=== PATIENT | female | born 1945 | race Caucasian/White ===

== ENCOUNTER 2017-07-27 08:45 | Day surgery (SDC) | payer MEDICARE ==
[~2017-07-27 08:45] MED LIST: Acetaminophen TAB* 325 MG PO PRN; Buffered Lidocaine 0.9% SYRIN* 5 ML/SYR SYRINGE INTRADERM ONE
[2017-07-27 11:33] VITALS: BP 170/75
--- NOTE | 2017-07-27 12:27 | OP ---
DATE OF OPERATION: 07/27/2017. DATE OF : 1945. SURGEON: Chris Hart M.D. PREOPERATIVE DIAGNOSIS: Cataract right eye. POSTOPERATIVE DIAGNOSIS: Cataract right eye. OPERATIVE PROCEDURE: Extracapsular cataract extraction with intraocular lens implant right eye. PROCEDURE: The patient was brought to the operating room after being given 1/2% Alcaine with epineph rine drops in the preoperative area. The eye was prepped and draped in the usual sterile fashion. S terile drape and eyelid speculum were placed. Again, topical 1/2% Alcaine with epinephrine was given . A paracentesis incision was made at the 9 o'clock position with the No.75 blade. Clear cornea inc ision 2.2 x 2.2-mm was created at the 12 o'clock position starting at the anterior limbus using the 2 .2-mm keratome. The anterior chamber was irrigated with 0.4 mL of 1% non-preservative intracameral l idocaine and filled with DisCoVisc. A capsulorrhexis was completed using the cystotome and the Utrat a forceps. Hydrodissection was performed with balanced salt solution. The lens nucleus was removed w ith the Phacoemulsification handpiece without incident. Cortex was removed with the irrigation-aspir ation handpiece. The capsular bag was re-inflated using DisCoVisc and an [id number] 20 implant was inser divina with the shooter. The irrigation-aspiration handpiece was used to remove all residual DisCoVisc. The eye was refilled with balanced salt solution and the wound checked and found to be watertight. Topical Maxitrol drops were given. [id number]/[facility] #: [id number]
[2017-07-27] MEDS ORDERED: Phenylephrine 2.5% OPTH.SOL* 2 ML BTL ONE (13:02)
[2017-07-27] MEDS ORDERED: Lidocaine 1% MPF* 2 ML VIAL ONE (13:02)
[2017-07-27] MEDS ORDERED: Cyclopentolate 1% OPTH.SOL* 2 ML BTL ONE (13:02)
[2017-07-27] MEDS ORDERED: Povidone Iodine 5% OPTH* 30 ML BTL ONE (13:02)
[2017-07-27] MEDS ORDERED: Proparacaine 0.5% OPHTH.SOL* 15 ML BTL ONE (13:02)
[2017-07-27] MEDS ORDERED: Lidocaine 2% EPI 1:200000 MPF* 20 ML VIAL ONE (13:02)
[2017-07-27] MEDS ORDERED: acetaZOLAMIDE TAB* 250 MG ONE (13:02)
[2017-07-27] MEDS ORDERED: Neomycin/Polymy/Dex OPTH.SUSP* MAXITROL 0.1% 5 ML ONE (13:02)
[2017-07-27] MEDS ORDERED: Ketorolac 0.5% OPHTH (NF) 0.5 % 5 ML BTL ONE (13:02)
== END 2017-07-27 11:12 | disposition home or self-care (01) ==
LOC: OREAST 08:45
PROVIDERS: ATTEND Specialist
DX: H25.811 Combined forms of age-related cataract, right eye (principal); E11.3293 Type 2 diabetes mellitus with mild nonproliferative diabetic retinopathy without macular edema, bilateral; H04.123 Dry eye syndrome of bilateral lacrimal glands; Z79.84 Long term (current) use of oral hypoglycemic drugs; I10 Essential (primary) hypertension; E78.00 Pure hypercholesterolemia, unspecified; D64.89 Other specified anemias; N18.9 Chronic kidney disease, unspecified
CPT/HCPCS: A9270-GY; V2632

== ENCOUNTER 2017-08-03 07:36 | Day surgery (SDC) | payer MEDICARE ==
[2017-08-03 10:39] VITALS: BP 157/70
--- NOTE | 2017-08-03 10:47 | OP ---
DATE OF OPERATION: 08/03/2017. DATE OF : 1945. SURGEON: Chris aHrt M.D. PREOPERATIVE DIAGNOSIS: Cataract left eye. POSTOPERATIVE DIAGNOSIS: Cataract left eye. OPERATIVE PROCEDURE: Extracapsular cataract extraction with intraocular lens implant left. Eye. PROCEDURE: The patient was brought to the operating room after being given 1/2% Alcaine with epineph rine drops in the preoperative area. The eye was prepped and draped in the usual sterile fashion. S terile drape and eyelid speculum were placed. Again, topical 1/2% Alcaine with epinephrine was given . A paracentesis incision was made at the 3 o'clock position with the No.75 blade. Clear cornea inc ision 2.2 x 2.2-mm was created at the 6 o'clock position starting at the anterior limbus using the 2. 2-mm keratome. The anterior chamber was irrigated with 0.4 mL of 1% non-preservative intracameral li docaine and filled with DisCoVisc. A capsulorrhexis was completed using the cystotome and the Utrata forceps. Hydrodissection was performed with balanced salt solution. The lens nucleus was removed wi th the Phacoemulsification handpiece without incident. Cortex was removed with the irrigation-aspira tion handpiece. The capsular bag was re-inflated using DisCoVisc and an SN60WF 19.5 implant was inse rted with the shooter. The irrigation-aspiration handpiece was used to remove all residual DisCoVisc . The eye was refilled with balanced salt solution and the wound checked and found to be watertight. Topical Maxitrol drops were given. [id number]/[facility] #: [id number]
[2017-08-03] MEDS ORDERED: acetaZOLAMIDE TAB* 250 MG ONE (12:50)
[2017-08-03] MEDS ORDERED: Cyclopentolate 1% OPTH.SOL* 2 ML BTL ONE (12:50)
[2017-08-03] MEDS ORDERED: Neomycin/Polymy/Dex OPTH.SUSP* MAXITROL 0.1% 5 ML ONE (12:50)
[2017-08-03] MEDS ORDERED: Ketorolac 0.5% OPHTH (NF) 0.5 % 5 ML BTL ONE (12:50)
[2017-08-03] MEDS ORDERED: Povidone Iodine 5% OPTH* 30 ML BTL ONE (12:50)
[2017-08-03] MEDS ORDERED: Lidocaine 2% EPI 1:200000 MPF* 20 ML VIAL ONE (12:50)
[2017-08-03] MEDS ORDERED: Lidocaine 1% MPF* 2 ML VIAL ONE (12:50)
[2017-08-03] MEDS ORDERED: Proparacaine 0.5% OPHTH.SOL* 15 ML BTL ONE (12:50)
[2017-08-03] MEDS ORDERED: Phenylephrine 2.5% OPTH.SOL* 2 ML BTL ONE (12:50)
== END 2017-08-03 10:26 | disposition home or self-care (01) ==
LOC: OREAST 07:36
PROVIDERS: ATTEND Specialist
DX: H25.812 Combined forms of age-related cataract, left eye (principal); E11.3293 Type 2 diabetes mellitus with mild nonproliferative diabetic retinopathy without macular edema, bilateral; H04.123 Dry eye syndrome of bilateral lacrimal glands; N18.9 Chronic kidney disease, unspecified; Z87.891 Personal history of nicotine dependence; D64.9 Anemia, unspecified; Z79.84 Long term (current) use of oral hypoglycemic drugs; I12.9 Hypertensive chronic kidney disease with stage 1 through stage 4 chronic kidney disease, or unspecified chronic kidney disease
CPT/HCPCS: A9270-GY; V2632

== ENCOUNTER 2019-02-20 14:05 | Inpatient (IN) | payer MEDICARE ==
[2019-02-20] MEDS ORDERED: NS 0.9% 1000 ML** 1,000 ML IV ONE ×2 (16:17→21:27)
--- NOTE | 2019-02-20 16:28 | ED ---
Shortness of Breath - HPI Summary HPI Summary: 74 year old F presenting to [facility] accompanied by sister with a chief complaint of shortness of breath since one week ago. The patient rates the pain 0/10 in severity. Symptoms aggravated by nothing. Symptoms alleviated by nothing. Patient reports cough since yesterday with no phlegm. Patient reports fever one week ago. Patient reports difficulty standing up right and difficulty speaking in full sentences. Sister reports fatigue. Patient denies chest pain, bilateral leg pain, abdominal pain, nausea, vomiting. Patient denies recent long distance traveling. Patient has hx of diabetes and kidney disease but denies dialysis. - History of Current Complaint Chief Complaint: EDShortnessOfBreath Time Seen by Provider: 02/20/19 16:09 Hx Obtained From: Patient, Family/Area Director Of Home Health Sales - sister Onset/Duration: Lasting Weeks - 1, Still Present Timing: Constant Current Severity: None Aggravating Factors: Nothing Alleviating Factors: Nothing - Allergy/Home Medications Allergies/Adverse Reactions: Allergies Allergy/AdvReac Type Severity Reaction Status Date / Time No Known Allergies Allergy Verified 02/20/19 14:18 Home Medications: Home Medications Albuterol inh POWDER (NF) [Proair Respiclick] 1 - 2 puff INH Q6HR PRN 02/20/19 [ History Confirmed 02/20/19] Aspirin EC TAB* [Ecotrin EC Low Dose 81 MG*] 81 mg PO DAILY 02/20/19 [History Confirmed 02/20/19] Atorvastatin* [Lipitor*] 10 mg PO DAILY 02/20/19 [History Confirmed 02/20/19] Calcitriol CAP* [Rocaltrol CAP*] 0.25 mcg PO BEDTIME 02/20/19 [History Confirmed 02/20/19] Calcium Carb/Mag Ox/Zinc Sulf [Calcium & Magnesium + Zin 334-134-5 mg] 1 tab PO DAILY 02/20/19 [History Confirmed 02/20/19] Cholecalciferol TAB* [Vitamin D TAB*] 1,000 unit PO DAILY 02/20/19 [History Confirmed 02/20/19] Cyanocobalamin TAB* [Vitamin B12 TAB*] 1,000 mcg PO DAILY 02/20/19 [History Confirmed 02/20/19] DOXYcycline CAP(*) [DOXYcycline 100MG CAP(*)] 200 mg PO ONCE PRN 02/20/19 [ History Confirmed 02/20/19] Lisinopril TAB* [Prinivil TAB*] 10 mg PO DAILY 02/20/19 [History Confirmed 02/20] Sitagliptin (NF) [Januvia (NF)] 50 mg PO DAILY 02/20/19 [History Confirmed 02/20] Vitamin E CAP* 400 unit PO DAILY 02/20/19 [History Confirmed 02/20/19] PMH/Surg Hx/FS Hx/Imm Hx Previously Healthy: No Endocrine/Hematology History: Reports: Hx Diabetes, Hx Anemia Denies: Hx Anticoagulant Therapy Cardiovascular History: Reports: Hx Hypertension Denies: Other Cardiovascular Problems/Disorders Respiratory History: Denies: Other Respiratory Problems/Disorders GI History: Reports: Hx Ulcer History: Reports: Other Problems/Disorders - stage 3 kidney disease Musculoskeletal History: Reports: Hx Arthritis - hands, Hx Gout Denies: Hx Osteoporosis Sensory History: Reports: Hx Cataracts - yaya, Hx Contacts or Glasses Denies: Hx Hearing Aid Opthamlomology History: Reports: Hx Cataracts - yaya, Hx Contacts or Glasses Neurological History: Denies: Other Neuro Impairments/Disorders - Cancer History Hx Chemotherapy: No Hx Radiation Therapy: No - Surgical History Surgery Procedure, Year, and Place: Hx Anesthesia Reactions: No Infectious Disease History: No Infectious Disease History: Denies: Traveled Outside the [place] in Last 30 Days - Family History Known Family History: Negative: Cardiac Disease, Diabetes - Social History Alcohol Use: Occasionally Substance Use Type: Reports: None Smoking Status (MU): Never Smoked Tobacco Type: Cigarettes Amount Used/How Often: 1-2 packs a day for 8-9 years Review of Systems Positive: Fever - one week ago, Fatigue Negative: Chest Pain Positive: Shortness Of Breath - one week ago , Cough - non productive, started yesterday Negative: Abdominal Pain, Vomiting, Diarrhea, Nausea Musculoskeletal: Negative - bilateral leg pain All Other Systems Reviewed And Are Negative: Yes Physical Exam - Summary Physical Exam Summary: VITAL SIGNS: Reviewed. GENERAL: Patient is a well-developed and nourished FEMALE who is lying comfortable in the stretcher. Patient is not in any acute respiratory distress. HEAD AND FACE: No signs of trauma. No ecchymosis, hematomas or skull depressions. No sinus tenderness. EYES: PERRLA, EOMI x 2, No injected conjunctiva, no nystagmus. EARS: Hearing grossly intact. Ear canals and tympanic membranes are within normal limits. MOUTH: Oropharynx within normal limits. NECK: Supple, trachea is midline, no adenopathy, no JVD, no carotid bruit, no c- spine tenderness, neck with full ROM. CHEST: Symmetric, no tenderness at palpation LUNGS: Clear to auscultation bilaterally. No wheezing or crackles. CVS: Tachycardic and regular rhythm, S1 and S2 present, no murmurs or gallops appreciated. ABDOMEN: Soft, non-tender. No signs of distention. No rebound no guarding, and no masses palpated. Bowel sounds are normal. EXTREMITIES: FROM in all major joints, no edema, no cyanosis or clubbing. NEURO: Alert and oriented x 3. No acute neurological deficits. Speech is normal and follows commands. SKIN: Dry and warm. Triage Information Reviewed: Yes Vital Signs On Initial Exam: Initial Vitals Temp Pulse Resp BP Pulse Ox 101 F 117 18 139/82 94 02/20/19 14:12 02/20/19 14:12 02/20/19 14:12 02/20/19 14:12 02/20/19 14:12 Vital Signs Reviewed: Yes Diagnostics - Vital Signs Vital Signs Temp Pulse Resp BP Pulse Ox 02/20/19 15:54 116 120/77 94 02/20/19 15:53 116 95 02/20/19 15:35 100.5 F 113 22 108/57 96 02/20/19 14:12 101 F 117 18 139/82 94 - Laboratory Result Diagrams: 02/21/19 15:07 02/21/19 06:24 Lab Statement: Any lab studies that have been ordered have been reviewed, and results considered in the medical decision making process. - Radiology Chest X-Ray Radiology Interpretation Completed By: Radiologist Summary of Radiographic Findings: HYPERINFLATION, CONSISTENT WITH COPD. NO ACTIVE CARDIOPULMONARY DISEASE. ED Physician has reviewed this report. - EKG 1630 Cardiac Rate: Tachycardia - 108 BPM EKG Rhythm: Sinus Tachycardia EKG Comparison: No Significant Change - 04/18/16 Summary of EKG Findings: Sinus Tachycardia, 108 bpm, no ST elevations, similar to 04/18/16 Course/Dx - Course Assessment/Plan: 74 year old F presenting to [facility] accompanied by sister with a chief complaint of shortness of breath since one week ago. The patient rates the pain 0/10 in severity. Symptoms aggravated by nothing. Symptoms alleviated by nothing. Patient reports cough since yesterday with no phlegm. Patient reports fever one week ago. Patient reports difficulty standing up right and difficulty speaking in full sentences. Sister reports fatigue. Patient denies chest pain, bilateral leg pain, abdominal pain, nausea, vomiting. Patient denies recent long distance traveling. Patient has hx of diabetes and kidney disease but denies dialysis. CXR impression: Hyperinflation, consistent with COPD. No active cardiopulmonary disease. Blood work without a significant abnormality except for WBCs of 7.3, hemoglobin 9.7, hematocrit 28 and platelets are clumped. D-dimer is more down 1050, 7134, carbon dioxide is 19, BUN 68, creatinine 3.3, glucose 228, calcium 8.4. Chest x-ray impression: Hyperinflation, consistent with COPD. No active cardiopulmonary disease. The patient has a history of chronic renal failure and the creatinine is at her baseline. However the patients d-dimer is elevated and the patient is tachycardic or hypoxic therefore I ran the Wells criteria for PE and has moderate risk for PE. Therefore, I ordered a d-dimer and its elevated to 1050. Since the patient has a history of chronic renal failure I decided to order a VQ scan. I discussed the case with Dr. Rose from radiology and he agrees and he will call the techs to perform the test and rule out a PE. At this time the patient will be signed out to Dr. Rodríguez at shift change. - Diagnoses Provider Diagnoses: Shortness of breath, Renal insufficiency, Anemia - Physician Notifications Discussed Care of Patient With: Arden Rose Time Discussed With Above Provider: 18:37 Instructed by Provider To: Other - Discussed with Dr. Rose, radiology, about getting a VQ Scan. Discharge - Sign-Out/Discharge Documenting (check all that apply): Sign-Out Patient Signing out patient TO: Diane Rodríguez - shift change Patient Received Moderate/Deep Sedation with Procedure: No - Discharge Plan Condition: Stable Disposition: ADMITTED TO [facility] - Attestation Statements Document Initiated by Scribe: Yes Documenting Scribe: Yudith Licea Provider For Whom Scribe is Documenting (Include Credential): Abdi Thrasher M.D. Scribe Attestation: I, Yudith Licea, scribed for Abdi Thrasher M.D. on 02/21/19 at 2117. Scribe Documentation Reviewed: Yes Provider Attestation: The documentation as recorded by the scribe, Yudith Licea accurately reflects the service I personally performed and the decisions made by Abdi chambers M.D. Status of Scribe Document: Viewed
[2019-02-20 18:09] LABS: ABS Lymphocytes 0.6 10^3/ul (1.0-4.8); ABS Monocytes 0.6 10^3/ul (0-0.8); ABS Neutrophils 6.1 10^3/ul (1.5-7.7); Hematocrit 28 % (35-47); Hemoglobin 9.7 g/dL (12.0-16.0); Lymphocyte % 7.7 %; Mean Corpuscular HGB Conc 35 g/dL (31-36); Mean Corpuscular Hemoglobin 28 pg (27-31); Mean Corpuscular Volume 81 fL (80-97); Nucleated Red Blood Cells % 0.1; Red Blood Count 3.47 10^6 /uL (3.70-4.87); Red Cell Distribution Width 13 % (10-15); White Blood Count 7.3 10^3/uL (3.5-10.8)
[2019-02-20 18:13] LABS: Activated Partial Thrombo Time 29.4 seconds (26.0-38.0)
[2019-02-20 18:24] LABS: Albumin 3.3 g/dL (3.2-5.2); BUN/Creatinine Ratio 20.6 (8-20); C Reactive Protein 93.37 mg/L (<8.01); Calcium 8.4 mg/dL (8.6-10.3); EGFR African American 16.6 (>60); EGFR Non-African American 13.7 (>60); Globulin 3.3 g/dL (2-4); Potassium 4.2 mmol/L (3.5-5.0); Total Bilirubin 0.6 mg/dL (0.2-1.0); Total Protein 6.6 g/dL (6.4-8.9)
[2019-02-20 18:26] LABS: Troponin I 0.02 ng/mL (<0.04)
[2019-02-20 18:28] LABS: CKMB ng/mL 0.7 ng/mL (0.6-6.3); Platelet Count Platelets clumped. 10^3/uL (150-450)
--- NOTE | 2019-02-20 19:41 | ED ---
Progress - Progress Note Progress Note: Receiving sign-out from Dr. Castro at 1900 pending VQ scan. Patient has no COPD history, patient was a former smoker in her 20s for 10 years. Lung Scan-VQ NM result: Normal perfusion. No evidence of pulmonary embolism. ED Provider has reviewed this report. Rectal Exam: No masses, no hemorrhoids. Brown stool sent for occult blood. Dr. Silva, Hospitalist, accepted the patient for admission to the hospital. This plan was discussed with the patient and she was agreeable with this plan. Course/Dx - Course Course Of Treatment: Receiving sign-out from Dr. Castro at 1900 pending VQ scan. Patient has no COPD history, patient was a former smoker in her 20s for 10 years. Lung Scan-VQ NM result: Normal perfusion. No evidence of pulmonary embolism. ED Provider has reviewed this report. Rectal Exam: No masses, no hemorrhoids. Brown stool sent for occult blood. Dr. Silva, Hospitalist, accepted the patient for admission to the hospital. This plan was discussed with the patient and she was agreeable with this plan. - Diagnoses Provider Diagnoses: Shortness of breath, Renal insufficiency, Anemia Discharge - Sign-Out/Discharge Documenting (check all that apply): Patient Departure - Admission, Receiving Sign-Out Receiving patient FROM: Abdi Castro - At shift change 1900 - Discharge Plan Condition: Stable Disposition: ADMITTED TO [facility] - Billing Disposition and Condition Condition: STABLE Disposition: Admitted to [facility] - Attestation Statements Document Initiated by Rosa Maria: Yes Documenting Leelae: Amadeo Beck Provider For Whom Rosa Maria is Documenting (Include Credential): MD Torres Paibmaria teresa Attestation: Amadeo Navarrete scribed for Diane Rodríguez MD on 02/21/19 at 0646. Scribe Documentation Reviewed: Yes Provider Attestation: The documentation as recorded by the Amadeo macdonald accurately reflects the service I personally performed and the decisions made by Ember chambers MD Status of Scribe Document: Viewed
[2019-02-20 21:42] LABS: Urine Appearance Cloudy; Urine Bacteria 3+ (Absent); Urine Bilirubin Negative (Negative); Urine Blood 1+ (Negative); Urine Color Yellow; Urine Glucose Negative (Negative); Urine Ketones Negative (Negative); Urine Nitrite Positive (Negative); Urine Protein 1+(30 mg/dL) (Negative); Urine Red Blood Cell 1+(3-5/hpf) (Absent); Urine Specific Gravity 1.012 (1.010-1.030); Urine Squamous Epithelial Cell Present (Absent); Urine Urobilinogen Negative (Negative); Urine White Blood Cell 3+(>20/hpf) (Absent)
--- NOTE | 2019-02-20 23:13 | HP ---
History of Present Illness - History of Present Illness Reason for Visit: Progressive fatigue, shortness of breath. History of Present Illness: 74yoF w/ DM, HTN, Dyslipidemia, Neuropathy, CKD stage 3, Hx of lyme disease, Neuropathy, here due to progressive fatigue and shortness of breath for the last 1 week. Also has on and off fever and headache. No blood in stool or in urine or any recent traumatic bleeding. Increased thirst the last few days. Dry cough. No other localizing signs no UTI symptoms. - Past Medical History Cardiac: HTN, Hyperlipidemia [employer]: Peripheral neuropathy Heme/Onc: Anemia NOS Infectious Disease: Other - Hx of Lyme disease Endocrine: Diabetes - Past Surgical History Past Surgical History: - 1986 - Past Family History Family History: Other - GI bleeding in mother but due to aspirin use. - Past Social History Smoke: Quit - Quit in her 20s didn't smoke more than a few years. Alcohol: None Drugs: None Lives: Alone Review of Systems - Measurements Intake and Output: Intake and Output Last 24 Hours 02/18/19 02/19/19 02/20/19 02/21/19 06:59 06:59 06:59 06:59 Weight 186 lb - Review of Systems Constitutional Symptoms: Positive: Fatigue, Fever Dermatology: Negative: Rash HEENT: Negative: Change in Hearing Eyes: Negative: Change in Vision Pulmonary: Positive: Cough, Shortness of Breath Negative: Sputum Cardiology: Negative: Chest Pain, Palpitations, Edema Gastroenterology: Negative: Abdominal Pain, Nausea, Vomiting, Constipation, Diarrhea Genital - Urinary: Negative: Dysuria, Polyuria Genitourinay - Female: Positive: Menopause Musculoskeletal: Positive: Joint Pain Hematologic/Lymphatic: Positive: Anemia Neurology: Positive: Headache Negative: Migraines, Change in Vision Objective Active Medications: Ascorbic Acid TAB* [Vitamin C TAB*] 500 mg PO DAILY 07/26/17 [History Confirmed 02/20/19] Albuterol inh POWDER (NF) [Proair Respiclick] 1 - 2 puff INH Q6HR PRN 02/20/19 [ History Confirmed 02/20/19] Aspirin EC TAB* [Ecotrin EC Low Dose 81 MG*] 81 mg PO DAILY 02/20/19 [History Confirmed 02/20/19] Atorvastatin* [Lipitor*] 10 mg PO DAILY 02/20/19 [History Confirmed 02/20/19] Calcitriol CAP* [Rocaltrol CAP*] 0.25 mcg PO BEDTIME 02/20/19 [History Confirmed 02/20/19] Calcium Carb/Mag Ox/Zinc Sulf [Calcium & Magnesium + Zin 334-134-5 mg] 1 tab PO DAILY 02/20/19 [History Confirmed 02/20/19] Cholecalciferol TAB* [Vitamin D TAB*] 1,000 unit PO DAILY 02/20/19 [History Confirmed 02/20/19] Cyanocobalamin TAB* [Vitamin B12 TAB*] 1,000 mcg PO DAILY 02/20/19 [History Confirmed 02/20/19] DOXYcycline CAP(*) [DOXYcycline 100MG CAP(*)] 200 mg PO ONCE PRN 02/20/19 [ History Confirmed 02/20/19] Lisinopril TAB* [Prinivil TAB*] 10 mg PO DAILY 02/20/19 [History Confirmed 02/20] Sitagliptin (NF) [Januvia (NF)] 50 mg PO DAILY 02/20/19 [History Confirmed 02/20] Vitamin E CAP* 400 unit PO DAILY 02/20/19 [History Confirmed 02/20/19] Allergies No Known Allergies Allergy (Verified 02/20/19 14:18) Vital Signs - 8 hr 02/20/19 02/20/19 02/20/19 15:35 15:53 15:54 Temperature 100.5 F Pulse Rate 113 116 116 Respiratory 22 Rate Blood Pressure 108/57 120/77 (mmHg) O2 Sat by Pulse 96 95 94 Oximetry 02/20/19 02/20/19 02/20/19 16:05 16:27 17:06 Temperature Pulse Rate 121 108 104 Respiratory Rate Blood Pressure 110/63 (mmHg) O2 Sat by Pulse 94 94 95 Oximetry 02/20/19 02/20/19 02/20/19 17:09 18:00 18:19 Temperature Pulse Rate 100 98 99 Respiratory 15 23 20 Rate Blood Pressure 121/62 (mmHg) O2 Sat by Pulse 94 95 Oximetry 02/20/19 02/20/19 02/20/19 18:49 19:00 19:19 Temperature Pulse Rate 99 96 Respiratory 21 20 19 Rate Blood Pressure 119/61 118/65 (mmHg) O2 Sat by Pulse 95 95 Oximetry 02/20/19 02/20/19 02/20/19 19:49 20:34 21:00 Temperature Pulse Rate 97 107 90 Respiratory 22 16 14 Rate Blood Pressure 124/65 (mmHg) O2 Sat by Pulse 97 97 98 Oximetry 02/20/19 02/20/19 21:19 21:45 Temperature 101.4 F Pulse Rate 94 Respiratory 25 Rate Blood Pressure 118/57 (mmHg) O2 Sat by Pulse 96 Oximetry Oxygen Devices in Use Now: None Eyes: No Scleral Icterus, PERRLA Ears/Nose/Mouth/Throat: NL Teeth, Lips, Gums, Clear Oropharnyx, Mucous Membranes Moist Neck: NL Appearance and Movements; NL JVP, No Thyroid Enlargement, Masses Respiratory: Clear to Auscultation Cardiovascular: NL Sounds; No Murmurs; No JVD, - - Tachycardia Abdominal: NL Sounds; No Tenderness; No Distention, No Hepatosplenomegaly Extremities: No Edema Skin: No Rash or Ulcers Neurological: Alert and Oriented x 3, NL Sensation, NL Muscle Strength and Tone Result Diagrams: 02/20/19 17:45 02/20/19 17:45 Microbiology and Other Data: Microbiology 02/20/19 21:25 Stool Occult Blood ([facility]AIN[facility]) - Final Stool Assess/Plan/Problems-Billing Assessment: 74yoF w/ DM, HTN, Dyslipidemia, Neuropathy, CKD stage 3, Hx of lyme disease, Neuropathy, here due to progressive fatigue and shortness of breath for the last 1 week. Drop in Hb noted along with fever, abnormal UA. Likely sepsis due to UTI. I was suspecting possible hemolytic syndromes so case discussed with Dr. Samaniego who suggested more than likely patient has some bleeding source and would first investigate that. - Patient Problems (1) Acute blood loss anemia Current Visit: Yes Status: Acute Code(s): D62 - ACUTE POSTHEMORRHAGIC ANEMIA SNOMED Code(s): 022599562 Comment: Unclear the source of bleeding. Given the amount of drop in Hb. Stool occult negative. Hematology consulted. (2) Sepsis Current Visit: Yes Status: Acute Comment: Likely due to UTI will start ceftriaxone. (3) UTI (urinary tract infection) Current Visit: Yes Status: Acute Comment: Ceftriaxone. Follow up with cultures. (4) H/o Lyme disease Current Visit: Yes Status: Acute Code(s): Z86.19 - PERSONAL HISTORY OF OTHER INFECTIOUS AND PARASITIC DISEASES SNOMED Code(s): 041039303 Comment: Follow up lyme PCR. Will consider ID consult if positive or if patient's fever not controlled by covering for UTI.
[2019-02-21] MEDS ORDERED: Dextrose 50% Syringe 50 ML* 25 GM/50 ML SYRINGE IV PUSH PRN (00:04)
[2019-02-21 00:24] LABS: Immature Retic Fraction 0.45
[2019-02-21 00:40] LABS: LDH 177 U/L (140-271); Total Iron Binding Capacity 276 mcg/dL (250-450); Transferrin 197 mg/dL (203-362)
[2019-02-21] MEDS: cefTRIAXone(*) 1 GM in NS 0.9% 50 ML* 50 ML IVPB SCH ×2 (01:11→23:36)
[2019-02-21 01:24] LABS: % Iron Saturation 6 % (15-55); Iron < 17 ug/dL (50-212)
[2019-02-21] MEDS: Acetaminophen TAB* 325 MG PO PRN ×2 (01:39→08:51)
[2019-02-21 01:59] LABS: ABS Lymphocytes 0.6 10^3/ul (1.0-4.8); ABS Monocytes 0.4 10^3/ul (0-0.8); ABS Neutrophils 5.1 10^3/ul (1.5-7.7); Corrected Retic Count 0.4 % (0.5-1.5); Eosinophil % 0.1 %; Hematocrit 27 % (35-47); Hematocrit for Retic CNT 27 % (35-47); Hemoglobin 9.7 g/dL (12.0-16.0); Lymphocyte % 10.3 %; Mean Corpuscular HGB Conc 35 g/dL (31-36); Mean Corpuscular Hemoglobin 29 pg (27-31); Mean Corpuscular Volume 81 fL (80-97); Platelet Count Platelets clumped. 10^3/uL (150-450); Red Cell Distribution Width 14 % (10-15); White Blood Count 6.3 10^3/uL (3.5-10.8)
[2019-02-21] MEDS ORDERED: Lisinopril TAB* 10 MG PO ONE (02:00)
[2019-02-21 06:38] LABS: Hematocrit 28 % (35-47); Hemoglobin 9.6 g/dL (12.0-16.0); Mean Corpuscular HGB Conc 34 g/dL (31-36); Mean Corpuscular Hemoglobin 28 pg (27-31); Mean Corpuscular Volume 81 fL (80-97); Red Blood Count 3.44 10^6 /uL (3.70-4.87); Red Cell Distribution Width 14 % (10-15); White Blood Count 5.8 10^3/uL (3.5-10.8)
[2019-02-21 06:51] LABS: Activated Partial Thrombo Time 29.1 seconds (26.0-38.0); INR 1.38 (0.82-1.09)
[2019-02-21 06:52] LABS: Albumin 3.1 g/dL (3.2-5.2); Albumin/Globulin Ratio 0.9 (1-3); BUN/Creatinine Ratio 19.8 (8-20); Globulin 3.5 g/dL (2-4); Potassium 4.1 mmol/L (3.5-5.0); Total Bilirubin 0.5 mg/dL (0.2-1.0); Total Protein 6.6 g/dL (6.4-8.9)
[2019-02-21 07:32] LABS: ABS Lymphocytes 0.4 10^3/ul (1.0-4.8); ABS Monocytes 0.4 10^3/ul (0-0.8); ABS Neutrophils 5.1 10^3/ul (1.5-7.7); Lymphocyte % 6.3 %; Nucleated Red Blood Cells % 0.1; Platelet Count Platelets clumped. 10^3/uL (150-450)
[2019-02-21 07:35] LABS: Platelet Morphology Clumped
[2019-02-21] MEDS: Cyanocobalamin TAB* 500 MCG PO SCH (08:16)
[2019-02-21] MEDS: Cholecalciferol TAB* 1000 UNITS PO SCH (08:16)
[2019-02-21] MEDS: Ascorbic Acid TAB* 500 MG PO SCH (08:17)
[2019-02-21] MEDS: Atorvastatin* 10 MG TAB PO SCH (08:17)
[2019-02-21] MEDS: Vitamin E CAP* 400 UNIT PO SCH (08:17)
[2019-02-21] MEDS: Insulin LISPRO* 1 UNITS UNIT SUBCUT SCH ×4 (08:17→19:22)
[2019-02-21] MEDS: NS 0.9% 1000 ML** 1,000 ML IV SCH ×2 (08:48→19:25)
[2019-02-21] MEDS ORDERED: Lisinopril TAB* 10 MG PO SCH (09:00)
[2019-02-21 09:25] LABS: Ferritin 510.8 ng/mL (11-307)
[2019-02-21 15:20] LABS: Hematocrit 25 % (35-47); Hemoglobin 8.7 g/dL (12.0-16.0); Mean Corpuscular HGB Conc 35 g/dL (31-36); Mean Corpuscular Hemoglobin 28 pg (27-31); Mean Corpuscular Volume 81 fL (80-97); Red Blood Count 3.11 10^6 /uL (3.70-4.87); Red Cell Distribution Width 14 % (10-15); White Blood Count 4.4 10^3/uL (3.5-10.8)
--- NOTE | 2019-02-21 17:15 | PN ---
Subjective Date of Service: 02/21/19 Interval History: Discussed with patient's PCP office. Patient had document tick bite in December, patient endorses. Patient reports body aches and joint pain several days before admission which have since resolved. Today, patient is feeling improved. She doesn't feel short of breath. She had not yet walked around so could not report dyspnea on exertion. Experienced chills this AM which have since resolved. Denies chest pain, melena, hematochezia ,hematuria, abd pain, nausea, vomiting. Objective Active Medications: Acetaminophen (Tylenol Tab*) 650 mg PO Q6H PRN PRN Reason: FEVER Last Admin: 02/21/19 08:51 Dose: 650 mg Ascorbic Acid (Vitamin C Tab*) 500 mg PO DAILY [facility] Last Admin: 02/21/19 08:17 Dose: 500 mg Atorvastatin Calcium (Lipitor*) 10 mg PO DAILY [facility] Last Admin: 02/21/19 08:17 Dose: 10 mg Calcitriol (Rocaltrol Cap*) 0.25 mcg PO BEDTIME [facility] Cholecalciferol (Vitamin D Tab*) 1,000 units PO DAILY [facility] Last Admin: 02/21/19 08:16 Dose: 1,000 units Cyanocobalamin (Vitamin B12 Tab*) 1,000 mcg PO DAILY [facility] Last Admin: 02/21/19 08:16 Dose: 1,000 mcg Dextrose (D50w Syringe 50 Ml*) 12.5 gm IV PUSH .FOR FS < 60 - SS PRN PRN Reason: FS < 60 Ceftriaxone Sodium 1 gm/ (Sodium Chloride) 50 mls @ 200 mls/hr IVPB Q24H [facility] Last Admin: 02/21/19 01:11 Dose: 200 mls/hr Sodium Chloride (Ns 0.9% 1000 Ml) 1,000 mls @ 100 mls/hr IV PER RATE [facility] Last Admin: 02/21/19 08:48 Dose: 100 mls/hr Insulin Human Lispro (Humalog*) 0 units SUBCUT ACHS [facility]; Protocol Last Admin: 02/21/19 16:14 Dose: Not Given Lisinopril (Prinivil Tab*) 10 mg PO DAILY [facility] Last Admin: 02/21/19 08:16 Dose: 10 mg Vitamin E (Vitamin E Cap*) 400 unit PO DAILY [facility] Last Admin: 02/21/19 08:17 Dose: 400 unit Vital Signs - 8 hr 02/21/19 02/21/19 11:15 15:15 Temperature 99.1 F 98.6 F Pulse Rate 101 91 Respiratory 16 24 Rate Blood Pressure 114/56 112/55 (mmHg) O2 Sat by Pulse 97 97 Oximetry Oxygen Devices in Use Now: None Appearance: White female sitting in hospital bed appearing in NAD Eyes: No Scleral Icterus, PERRLA Ears/Nose/Mouth/Throat: Mucous Membranes Moist Neck: NL Appearance and Movements; NL JVP Respiratory: Symmetrical Chest Expansion and Respiratory Effort, Clear to Auscultation Cardiovascular: NL Sounds; No Murmurs; No JVD, RRR Abdominal: - - abd soft, nontender, nondistended Extremities: No Edema, No Clubbing, Cyanosis Skin: No Rash or Ulcers, - - no jaundice Neurological: Alert and Oriented x 3, NL Muscle Strength and Tone Result Diagrams: 02/21/19 15:07 02/21/19 06:24 Microbiology and Other Data: Microbiology 02/20/19 21:25 Stool Occult Blood (ZAINAB) - Final Stool Assess/Plan/Problems-Billing Assessment: 74yoF w/ DM, HTN, Dyslipidemia, Neuropathy, CKD stage 3, Hx of lyme disease, reports to ED c/o progressive fatigue and shortness of breath x1 week. Found to have anemia. - Patient Problems (1) Sepsis Current Visit: Yes Status: Acute Comment: -possibly due to UTI given abnormal UA -urine culture pending -continue ceftriaxone -last fever overnight, remained tachycardic at times during the day (2) Anemia Current Visit: Yes Status: Acute Code(s): D64.9 - ANEMIA, UNSPECIFIED SNOMED Code(s): 690041864 Comment: -patient has what appears to be anemia of chronic disease -it's possible that her drop in Hgb between 7/1 (from PCP office) to 7/2 (in ED ) represents dilutional change after receiving fluids in ED -hemolysis is unlikely given normal bilirubin -B12 elevated; stool hemoccult negative -appreciate input from Dr. Richard -additionally, unable to measure platelet due to clumping, even with citrated platelet lab (3) Tick bite Current Visit: Yes Status: Acute Code(s): W57.XXXA - BIT/STUNG BY NONVENOM INSECT & OTH NONVENOM ARTHROPODS, INIT SNOMED Code(s): 87265604 Comment: -patient had tick bite in December, received ppx from PCP office -lyme PCR pending -ordered tick panel -lyme is already covered by ceftriaxone (4) Diabetes Current Visit: Yes Status: Acute Code(s): E11.9 - TYPE 2 DIABETES MELLITUS WITHOUT COMPLICATIONS SNOMED Code(s): 79742524 Comment: -SS lispro and AC fingersticks (5) Acute kidney injury superimposed on CKD Current Visit: Yes Status: Acute Code(s): N17.9 - ACUTE KIDNEY FAILURE, UNSPECIFIED; N18.9 - CHRONIC KIDNEY DISEASE, UNSPECIFIED SNOMED Code(s): 84947002 Comment: -holding FRANKLIN -renal US without hydronephrosis, but does demonstrate uterine cyst (warrants outpatient follow up) -possibly related to UTI, urine cx pending, but likely related to hypotension in setting of sepsis as well -will d/c IVF this evening and monitor (6) DVT prophylaxis Current Visit: Yes Status: Acute Code(s): Z29.9 - ENCOUNTER FOR PROPHYLACTIC MEASURES, UNSPECIFIED SNOMED Code(s): 550213007 Comment: -holding chemoprophylaxis given small possibility of source of bleed, pending heme input -SCDs (7) Full code status Current Visit: Yes Status: Acute Code(s): Z78.9 - OTHER SPECIFIED HEALTH STATUS SNOMED Code(s): 162331194
[2019-02-21 20:07] LABS: Renal Sodium Excretion 2.4 %; Urine Creatinine Concentration 59.93 mg/dL
[2019-02-21] MEDS: Calcitriol CAP* 0.25 MCG PO SCH (20:08)
[2019-02-21 22:40] LABS: Creatinine, Serum 3.3 mg/dL (0.51-0.95)
--- NOTE | 2019-02-22 02:46 | CONS ---
MEDICAL ONCOLOGY/HEMATOLOGY CONSULTATION NOTE: DATE OF CONSULTATION: 02/21/19 REASON FOR CONSULTATION: Anemia and reported thrombocytopenia. HISTORY OF PRESENT ILLNESS: Stephanie Maurice is a 74-year-old female who reports that she was in her usual state of good health until approximately 1 week ago. At that point, she developed a headache, joint pain, fevers, and chills. She had some shortness of breath even at rest without an associated cough. As recent as 2 weeks ago when at baseline, she was able to carry objects quickly up and down 3 flights of stairs when working at [employer]. She reports that within the last 3 to 4 weeks, she has had tick bites on 2 occasions and both about 3 weeks ago. She did receive 1 dose of doxycycline. On 02/20/19, the day of admission, she noticed marked increase in shortness of breath and lethargy. She presented to the emergency room where she was found to have anemia along with likely urinary tract infection. She has had laboratory studies done the day prior to admission when she had presented, it was somewhat similar, but not severe symptoms, to [facility]. CBC on 02/19/19, white count 10,800, H and H 33/11.3, and platelets were clumped. On 02/20/19, when she presented to the emergency room in the evening, H and H was now 28/9.7 and this morning it is 28/9.6. Platelets have been clumped on 4 different lab samples. White count has remained normal including normal neutrophil counts. In addition, laboratory studies on admission revealed an elevated creatinine first documented the day prior to admission on 02/19/19 with a creatinine of 3.77 with a baseline creatinine of about 2 to 2.1. Since admission, the creatinine has found slightly to 3.24. Other laboratory studies this admission included iron studies with an iron of less than 17, reported iron saturation of 6%, but truly less, given the fact that the iron is not calculable. TIBC is 276. Transferrin is slightly low 197, ferritin is quite elevated at 510. B12 level is elevated at over 1450. She has been longstanding on both oral iron and oral B12. She has been on B12 since the time of a low B12 level detected in 2013 when it was 152. She has been on iron for at least 5 years. Looking back at her blood counts, it should be noted that she has had at least some anemia going back to the oldest available laboratory studies in 2011 and has typically run a hemoglobin of between 10.5 and 11.5. There was a period of time in 2014 to 2015 when hemoglobin was in the 9 to 9.8 range similar to where it is this morning. On occasions, she has had normal white cells, normal platelets; and MCV which is at the low end of normal at 81, previously over the past 7 years it has typically run more, 82 to 88. PAST MEDICAL HISTORY: 1. Stage 3 kidney disease for at least 5 years for which she follows with Dr. Birmingham and Dr. Hernandez. 2. Diabetes mellitus type 2 for 30 years with a sensory peripheral neuropathy. 3. History of hypertension. 4. History of hyperlipidemia. 5. History of Lyme disease. 6. Status post in 1986. 7. Has had multiple colonoscopies over time. On her very first colonoscopy, there was a polyp detected. She has had 4 or 5 colonoscopies, most recently with Dr. Patel in 2014 and it was unremarkable, good prep, and no polyps noted. No prior hospitalizations, no other surgeries. FAMILY HISTORY: No family history of malignancy. SOCIAL HISTORY: She continues to work about 20 hours per week at [employer]. Lives with her . Smoking occasionally in her 20s. No alcohol. No illicit drugs. MEDICATIONS ON ADMISSION: 1. Ferrous gluconate 1 pill daily for at least 5 years. 2. Vitamin B12 1000 mcg daily. 3. Vitamin C. 4. Aspirin 81 mg daily. 5. Rocaltrol 0.25 mg at h.s. 6. Calcium carbonate with magnesium and zinc daily. 7. Lisinopril 10 mg daily. 8. Sitagliptin/Januvia 50 mg daily. 9. Doxycycline, took late last month. 10. Atorvastatin 10 mg daily. 11. Albuterol p.r.n. ALLERGIES: None. REVIEW OF SYSTEMS: As discussed above. With decreased energy, increasing shortness of breath, headaches, joint pain, fevers, and chills. Denies any other neurologic complaints, specifically no weakness, tingling, numbness, change in vision, or change in speech. Does have mild peripheral neuropathy, this is stable. No significant arthritic or bony complaints. No significant change in bowel or bladder habits, specifically denies any gum bleeds, nosebleed , blood in the urine or stool. PHYSICAL EXAMINATION: A 74-year-old female, in no acute distress. Vital Signs : Blood pressure 114/56, pulse 101, T-max 101.4, and currently 99.1. HEENT: PERRL. EOMI. No erythema or exudates. No palpable cervical, supraclavicular, or axillary adenopathy. Lungs: Clear. Heart: 1 to 2/6 systolic ejection murmur. Abdomen: Soft, nontender, without masses or organomegaly. Extremities : No edema. Back: No CVA or spinal tenderness. Neurologic Exam: The patient is alert and oriented x3. Motor is 5- to 5 throughout and symmetric. Cranial nerves III to XII are intact. DIAGNOSTIC STUDIES/LAB DATA: In addition to those noted above, include negative direct Yan, LDH of 177, total bilirubin of 0.6. Normal transaminases. Elevated C-reactive protein at 93 and believed markedly more elevated and a level of 24 one day previously; baseline appeared to be 16 in 2016. Reticulocyte count corrected at 0.4. Recent Lyme titers are positive on 02/19/19. IMPRESSION: A 74-year-old female with longstanding mild normochromic, normocytic anemia, which is without abnormalities in other cell lines. Laboratory values had not changed significantly from 2010 until 02/19/19. She had been documented in the past to be B12 deficient several years ago and has remained on oral B12 without developing macrocytosis, megaloblastic changes, or worsening anemia. Her peripheral smear was reviewed by myself today. The platelets are definitely clumped. Some large platelets are seen almost the size of the red cells. Given the amount of clumping, her platelet count is at least into the normal range. A citrated tube was attempted to try to further document the platelet count, but that clumped as well. 1. In regard to the platelets, we can try doing tests with amikacin added to the blood vial tube to see if we can unclump the platelets and get a more accurate value. If we cannot, I am not convinced at all that her platelet count is low and we would not be worried by this. 2. Anemia. On reviewing the peripheral smear, there are no schistocytes or any other signs of hemolysis. No early forms are seen and no nucleated red blood cells are seen. It is likely that her current anemia is multifactorial. Clearly, her anemia could very well be worse in relation to having worsening renal failure. In addition, this may be worsened by sepsis. The drop from the day prior to admission to the day of admission is not totally explainable by the amount of fluid as the initial value in the emergency room is before receiving huge volumes of fluid. Despite this, she remained stable since then, at least 1 stool guaiac is negative at the present time. Her iron and ferritin levels would be more suggestive of an anemia of chronic disease than a true iron deficiency, but even on oral iron she does have very low iron levels. The last colonoscopy was 4 years ago. She has never had an upper GI endoscopy nor does she have any symptoms related to heartburn or reflux at the present time. If her red count were continue to drop, it would certainly be reasonable for GI to be consulted in regard to obtaining further studies. There is as noted above absolutely no sign of hemolysis. There is no strong suspicion for primary bone marrow involvement given laboratory studies as recently as at essentially her baseline. [id number]/[facility] #: [id number] [facility]
[2019-02-22] MEDS: Acetaminophen TAB* 325 MG PO PRN (06:18)
[2019-02-22 07:13] LABS: Hematocrit 31 % (35-47); Hemoglobin 9.7 g/dL (12.0-16.0); Mean Corpuscular HGB Conc 32 g/dL (31-36); Mean Corpuscular Hemoglobin 28 pg (27-31); Mean Corpuscular Volume 88 fL (80-97); Red Blood Count 3.53 10^6 /uL (3.70-4.87); Red Cell Distribution Width 15 % (10-15); White Blood Count 4.3 10^3/uL (3.5-10.8)
[2019-02-22 07:32] LABS: Platelet Count Platelets clumped. 10^3/uL (150-450)
[2019-02-22 07:38] LABS: Platelet Morphology Clumped
[2019-02-22] MEDS: Insulin LISPRO* 1 UNITS UNIT SUBCUT SCH ×4 (07:39→19:38)
[2019-02-22] MEDS: Vitamin E CAP* 400 UNIT PO SCH (08:04)
[2019-02-22] MEDS: Ascorbic Acid TAB* 500 MG PO SCH (08:04)
[2019-02-22] MEDS: Atorvastatin* 10 MG TAB PO SCH (08:05)
[2019-02-22] MEDS: Cyanocobalamin TAB* 500 MCG PO SCH (08:05)
[2019-02-22] MEDS: Cholecalciferol TAB* 1000 UNITS PO SCH (08:05)
[2019-02-22 08:54] LABS: Platelet Count Platelets clumped. 10^3/uL (150-450)
--- NOTE | 2019-02-22 11:12 | PN ---
Subjective Date of Service: 02/22/19 Interval History: Ms. Maurice is feeling a bit better today. She did have a low-grade fever this morning with associated headache and nausea. The headache resolved with Tylenol and the nausea resolved after eating. She does still feel slightly SOB. Denies CP, V/D, dizziness. No concerns from nursing. Family History: Unchanged from Admission Social History: Unchanged from Admission Past Medical History: Unchanged from Admission Objective Active Medications: Acetaminophen (Tylenol Tab*) 650 mg PO Q6H PRN FEVER Ascorbic Acid (Vitamin C Tab*) 500 mg PO DAILY [facility] Atorvastatin Calcium (Lipitor*) 10 mg PO DAILY [facility] Calcitriol (Rocaltrol Cap*) 0.25 mcg PO BEDTIME [facility] Cholecalciferol (Vitamin D Tab*) 1,000 units PO DAILY [facility] Cyanocobalamin (Vitamin B12 Tab*) 1,000 mcg PO DAILY [facility] Dextrose (D50w Syringe 50 Ml*) 12.5 gm IV PUSH .FOR FS < 60 - SS PRN FS < 60 Ceftriaxone Sodium 1 gm/ (Sodium Chloride) 50 mls @ 200 mls/hr IVPB Q24H [facility] Insulin Human Lispro (Humalog*) 0 units SUBCUT ACHS [facility]; Protocol Vitamin E (Vitamin E Cap*) 400 unit PO DAILY [facility] Vital Signs - 8 hr 02/22/19 02/22/19 02/22/19 03:45 07:33 07:48 Temperature 100.2 F 98.8 F Pulse Rate 101 109 Respiratory 16 20 20 Rate Blood Pressure 133/63 122/58 (mmHg) O2 Sat by Pulse 96 96 Oximetry Oxygen Devices in Use Now: None Appearance: Elderly female laying in bed in NAD Eyes: No Scleral Icterus Ears/Nose/Mouth/Throat: Mucous Membranes Moist Neck: NL Appearance and Movements; NL JVP, Trachea Midline Respiratory: Symmetrical Chest Expansion and Respiratory Effort, Clear to Auscultation Cardiovascular: NL Sounds; No Murmurs; No JVD, RRR Abdominal: NL Sounds; No Tenderness; No Distention Extremities: No Edema Skin: No Rash or Ulcers Neurological: Alert and Oriented x 3 Lines/Tubes/Other Access: Clean, Dry and Intact Peripheral IV Nutrition: Taking PO's Result Diagrams: 02/22/19 08:19 02/21/19 07:28 Assess/Plan/Problems-Billing Assessment: Ms. Maurice is a 74 yo F with PMH of DM, HTN, dyslipidemia, neuropathy, CKD stage 3, and Lyme disease; who presented to the ED with c/o progressive fatigue and shortness of breath x1 week and was found to have anemia. - Patient Problems (1) UTI (urinary tract infection) Comment: - Denies symptoms - Urine culture growing 75-100k colonies E. coli; sensitivities pending - Will continue to treat despite low colony count as there is no other clear source of infection and she is improving on current treatment - Continue ceftriaxone (2) Anemia Code(s): D64.9 - ANEMIA, UNSPECIFIED Comment: - Likely anemia of chronic disease exacerbated by sepsis - Possible that drop in Hgb between 02/19 (outpatient) to 7 (in ED) represents dilutional change after receiving fluids in ED - B12 elevated; stool occult negative; bilirubin normal - Appreciate hemeatology consult; suspects anemia of chronic disease with possible component of sepsis; if H&H drops any more should consider EGD - Resume ferrous gluconate (home med) (3) Acute kidney injury superimposed on CKD Current Visit: Yes Status: Acute Code(s): N17.9 - ACUTE KIDNEY FAILURE, UNSPECIFIED; N18.9 - CHRONIC KIDNEY DISEASE, UNSPECIFIED SNOMED Code(s): 01682607 Comment: - Reported baseline stage 3, but GFR has been <30 since 2015 so appears to be stage 4 - FENa 2.4% indicating intrinsic renal failure - Renal US without hydronephrosis, but does show uterine cyst (needs outpatient follow up) - Appreciate nephrology consult - Hold lisinopril (4) Platelet dysfunction Code(s): D69.1 - QUALITATIVE PLATELET DEFECTS Comment: - Platelets clumping since admission, but no history of this - Citrated tube attemped without success - Appreciate Hematology consult; confirms clumping, but believes count is still within normal range - Will check platelets again tomorrow with plans to add amikacin per Heme recommendations; cannot perform test today as pathologist will need to be present (5) Sepsis Comment: - Resolved - Suspect secondary to UTI - Met criteria on admission with fever and tachycardia - Reported tick bite in December 2018 and received prophylaxis from PCP; PCR pending , but low suspicion that this is Lyme related, though that would be covered with current abx - Continue ceftriaxone (6) Diabetes Code(s): E11.9 - TYPE 2 DIABETES MELLITUS WITHOUT COMPLICATIONS Comment: - Poor glucose control - A1c pending - Continue Lispro SS (7) DVT prophylaxis Code(s): Z29.9 - ENCOUNTER FOR PROPHYLACTIC MEASURES, UNSPECIFIED Comment: - SCDs (8) Full code status Code(s): Z78.9 - OTHER SPECIFIED HEALTH STATUS Comment: Status and Disposition: Inpatient. Anticipate d/c home when medically stable. Attending: Carlos Slater
[2019-02-22 15:33] LABS: Calcium 8.1 mg/dL (8.6-10.3); Potassium 4.2 mmol/L (3.5-5.0)
[2019-02-22 15:38] LABS: BUN/Creatinine Ratio 19.4 (8-20); EGFR African American 19.9 (>60); EGFR Non-African American 16.4 (>60)
[2019-02-22 17:06] LABS: BUN/Creatinine Ratio 19.2 (8-20); Calcium 8.3 mg/dL (8.6-10.3); EGFR African American 22.4 (>60); EGFR Non-African American 18.5 (>60); Potassium 3.9 mmol/L (3.5-5.0)
[2019-02-22] MEDS: Calcitriol CAP* 0.25 MCG PO SCH (19:59)
[2019-02-22] MEDS: cefTRIAXone(*) 1 GM in NS 0.9% 50 ML* 50 ML IVPB SCH (23:38)
[2019-02-23 06:59] LABS: BUN/Creatinine Ratio 18.5 (8-20); Calcium 8.7 mg/dL (8.6-10.3); EGFR African American 23.7 (>60); EGFR Non-African American 19.6 (>60); Potassium 3.9 mmol/L (3.5-5.0)
[2019-02-23] MEDS: Insulin LISPRO* 1 UNITS UNIT SUBCUT SCH ×4 (09:53→20:30)
[2019-02-23] MEDS: Acetaminophen TAB* 325 MG PO PRN (09:56)
[2019-02-23] MEDS: Ferrous Gluconate TAB* 324 MG TAB PO SCH (09:59)
[2019-02-23] MEDS: Ascorbic Acid TAB* 500 MG PO SCH (09:59)
[2019-02-23] MEDS: Cholecalciferol TAB* 1000 UNITS PO SCH (09:59)
[2019-02-23] MEDS: Vitamin E CAP* 400 UNIT PO SCH (10:00)
[2019-02-23] MEDS: Cyanocobalamin TAB* 500 MCG PO SCH (10:00)
[2019-02-23] MEDS: Atorvastatin* 10 MG TAB PO SCH (10:00)
--- NOTE | 2019-02-23 15:16 | PN ---
Subjective Date of Service: 02/23/19 Interval History: Ms. Maurice is feeling better today. She has not been up ambulating much. She denies urinary symptoms. No CP, SOB, N/V. Appetite is somewhat poor, but she did not get what she ordered. No concerns from nursing. Family History: Unchanged from Admission Social History: Unchanged from Admission Past Medical History: Unchanged from Admission Objective Active Medications: Acetaminophen (Tylenol Tab*) 650 mg PO Q6H PRN FEVER Ascorbic Acid (Vitamin C Tab*) 500 mg PO DAILY [facility] Atorvastatin Calcium (Lipitor*) 10 mg PO DAILY [facility] Calcitriol (Rocaltrol Cap*) 0.25 mcg PO BEDTIME [facility] Cholecalciferol (Vitamin D Tab*) 1,000 units PO DAILY [facility] Cyanocobalamin (Vitamin B12 Tab*) 1,000 mcg PO DAILY [facility] Dextrose (D50w Syringe 50 Ml*) 12.5 gm IV PUSH .FOR FS < 60 - SS PRN FS < 60 Ferrous Gluconate (Fergon Tab*) 325 mg PO DAILY [facility] Ceftriaxone Sodium 1 gm/ (Sodium Chloride) 50 mls @ 200 mls/hr IVPB Q24H [facility] Insulin Human Lispro (Humalog*) 0 units SUBCUT ACHS [facility]; Protocol Vitamin E (Vitamin E Cap*) 400 unit PO DAILY [facility] Vital Signs - 8 hr 02/23/19 02/23/19 02/23/19 07:27 08:00 11:29 Temperature 97.8 F 98.4 F Pulse Rate 99 103 Respiratory 18 18 18 Rate Blood Pressure 144/73 136/70 (mmHg) O2 Sat by Pulse 98 96 Oximetry Oxygen Devices in Use Now: None Appearance: Elderly female sitting in bed in NAD Eyes: No Scleral Icterus Ears/Nose/Mouth/Throat: Mucous Membranes Moist Neck: NL Appearance and Movements; NL JVP, Trachea Midline Respiratory: Symmetrical Chest Expansion and Respiratory Effort, Clear to Auscultation Cardiovascular: NL Sounds; No Murmurs; No JVD, RRR Abdominal: NL Sounds; No Tenderness; No Distention Extremities: No Edema Neurological: Alert and Oriented x 3 Lines/Tubes/Other Access: Clean, Dry and Intact Peripheral IV Nutrition: Taking PO's Result Diagrams: 02/22/19 08:19 02/23/19 06:12 Assess/Plan/Problems-Billing Assessment: Ms. Maurice is a 74 yo F with PMH of DM, HTN, dyslipidemia, neuropathy, CKD stage 3, and Lyme disease; who presented to the ED with c/o progressive fatigue and shortness of breath x1 week and was found to have anemia. - Patient Problems (1) UTI (urinary tract infection) Comment: - Denies symptoms - Urine culture growing 75-100k colonies pansensitive E. coli - Will continue to treat despite low colony count as there is no other clear source of infection and she is improving on current treatment - Continue ceftriaxone (2) Anemia Code(s): D64.9 - ANEMIA, UNSPECIFIED Comment: - Likely anemia of chronic disease exacerbated by sepsis - Possible that drop in Hgb between 02/19 (outpatient) to 7 (in ED) represents dilutional change after receiving fluids in ED - B12 elevated; stool occult negative; bilirubin normal - Appreciate hemeatology consult; suspects anemia of chronic disease with possible component of sepsis; if H&H drops any more should consider EGD - Continue ferrous gluconate (3) Acute kidney injury superimposed on CKD Current Visit: Yes Status: Acute Code(s): N17.9 - ACUTE KIDNEY FAILURE, UNSPECIFIED; N18.9 - CHRONIC KIDNEY DISEASE, UNSPECIFIED SNOMED Code(s): 88755369 Comment: - Creatinine improving - Reported baseline stage 3, but GFR has been <30 since 2015 so appears to be stage 4 - FENa 2.4% indicating intrinsic renal failure; suspect ATN - Renal US without hydronephrosis, but does show uterine cyst (needs outpatient follow up) - Spoke with Dr. Alberts and will hold off on nephrology consult at this time as renal function is improving and the patient is already established as an outpatient - Hold lisinopril (4) Platelet dysfunction Code(s): D69.1 - QUALITATIVE PLATELET DEFECTS Comment: - Platelets clumping since admission, but no history of this - Citrated tube attemped without success - Appreciate Hematology consult; confirms clumping, but believes count is still within normal range and is not concerned - Amikacin test not able to be performed at the lab, so will hold off on any additional testing (5) Sepsis Comment: - Resolved - Suspect secondary to UTI - Met criteria on admission with fever and tachycardia - Reported tick bite in December 2018 and received prophylaxis from PCP; PCR pending , but low suspicion that this is Lyme related, though that would be covered with current abx - Continue ceftriaxone (6) Diabetes Code(s): E11.9 - TYPE 2 DIABETES MELLITUS WITHOUT COMPLICATIONS Comment: - Poor glucose control - A1c 7.9% - Continue Lispro SS (7) DVT prophylaxis Code(s): Z29.9 - ENCOUNTER FOR PROPHYLACTIC MEASURES, UNSPECIFIED Comment: - SCDs (8) Full code status Code(s): Z78.9 - OTHER SPECIFIED HEALTH STATUS Comment: Status and Disposition: Inpatient. Anticipate d/c home when medically stable. Attending: Armani An
[2019-02-23] MEDS: Calcitriol CAP* 0.25 MCG PO SCH (20:30)
[2019-02-23] MEDS: cefTRIAXone(*) 1 GM in NS 0.9% 50 ML* 50 ML IVPB SCH (23:44)
[2019-02-24 00:35] LABS: Anaplasma phagocytophilum Positive (Negative); B. miyamotoi PCR, B Negative (Negative); Babesia divergens/MO-1 Negative (Negative); Babesia ducani Negative (Negative); Ehrlichia chaffeensis Negative (Negative); Ehrlichia ewingii/canis Negative (Negative); Ehrlichia muris eauclairensis Negative (Negative)
[2019-02-24 00:47] LABS: B garinii/B afzelii PCR Negative (Negative); B mayonii PCR Negative (Negative)
[2019-02-24] MEDS ORDERED: DOXYcycline CAP(*) 100 MG PO SCH (01:30)
[2019-02-24] MEDS ORDERED: DOXYcycline IV* 100 MG in NS 0.9% 250 ML* 250 ML IVPB SCH (02:00)
[2019-02-24 05:51] LABS: BUN/Creatinine Ratio 21.4 (8-20); Calcium 8.7 mg/dL (8.6-10.3); EGFR African American 29.5 (>60); EGFR Non-African American 24.4 (>60); Potassium 4.2 mmol/L (3.5-5.0)
[2019-02-24 06:42] LABS: ABS Lymphocytes 1.6 10^3/ul (1.0-4.8); ABS Monocytes 0.8 10^3/ul (0-0.8); ABS Neutrophils 2.2 10^3/ul (1.5-7.7); Eosinophil % 1.1 %; Hematocrit 26 % (35-47); Lymphocyte % 34.7 %; Mean Corpuscular HGB Conc 35 g/dL (31-36); Mean Corpuscular Hemoglobin 28 pg (27-31); Mean Corpuscular Volume 81 fL (80-97); Nucleated Red Blood Cells % 0.2; Platelet Count Platelets clumped. 10^3/uL (150-450); Red Blood Count 3.21 10^6 /uL (3.70-4.87); Red Cell Distribution Width 14 % (10-15); White Blood Count 4.6 10^3/uL (3.5-10.8)
[2019-02-24] MEDS: Insulin LISPRO* 1 UNITS UNIT SUBCUT SCH ×2 (07:36→11:08)
[2019-02-24] MEDS: Cholecalciferol TAB* 1000 UNITS PO SCH (07:53)
[2019-02-24] MEDS: Atorvastatin* 10 MG TAB PO SCH (07:53)
[2019-02-24] MEDS: Vitamin E CAP* 400 UNIT PO SCH (07:53)
[2019-02-24] MEDS: Ascorbic Acid TAB* 500 MG PO SCH (07:53)
[2019-02-24] MEDS: Cyanocobalamin TAB* 500 MCG PO SCH (07:54)
[2019-02-24] MEDS: Ferrous Gluconate TAB* 324 MG TAB PO SCH (07:54)
[2019-02-24] MEDS ORDERED: DOXYcycline IV* 100 MG in NS 0.9% 250 ML* 250 ML IVPB ONE (11:16)
[2019-02-24 12:25] VITALS: BP 130/81
--- NOTE | 2019-02-24 16:56 | DS ---
AMENDED REPORT NOW INCLUDES DESIGNATED COSIGNER CC: Dr. Bahman Martin; Dr. Sergo Devlin; Dr. Audrey Alberts; Dr. Urban Birmingham * DISCHARGE SUMMARY: DATE OF ADMISSION: 02/20/19 DATE OF DISCHARGE: 02/24/19 PRIMARY CARE PROVIDER: Dr. Bahman Martin. ATTENDING PHYSICIAN: Dr. Carlos Slater * (dictated by Arlin Guillaume NP). PRIMARY DIAGNOSES: 1. Anaplasmosis. 2. Urinary tract infection. 3. Sepsis. 4. Acute on chronic kidney disease, baseline stage 4. 5. Anemia. 6. Platelet abnormalities. SECONDARY DIAGNOSES: 1. Diabetes. 2. Hypertension. 3. History of lyme disease. STUDIES WHILE IN THE HOSPITAL: 1. Chest x-ray on 02/20/19 reads as hyperinflation consistent with COPD. No active cardiopulmonary disease. 2. EKG on 02/20/19 shows sinus tachycardia with a rate of 108, QTc 406. No ischemic changes. This EKG is consistent with previous EKG on file at this facility. 3. V/Q scan on 02/20/19 reads as normal perfusion. No evidence of pulmonary embolism. 4. Abdomen and bladder ultrasound on 02/21/19 reads as medical renal disease with no hydronephrosis of either kidney. Minimal postvoid residual of 27 mL. Anechoic lesion to the left of the uterus seen in the pelvis likely representing left ovarian cyst measuring 6.7 x 6.7 x 5.9 cm. Correlation with pelvic ultrasound is suggested. 5. EKG on 02/22/19 shows sinus tachycardia with a rate of 106, QTc 396, occasional PVCs. HISTORY OF PRESENT ILLNESS AND HOSPITAL COURSE: Ms. Maurice is a 74-year-old female with past medical history of hypertension, hyperlipidemia, diabetes, lyme disease, and anemia of chronic disease, who presented to the emergency room on 02/20/19 with complaints of fatigue and shortness of breath. Please see the history and physical by Dr. Lofton for a complete summary of the events leading up to this hospitalization. In short, the patient reported 1 week of fatigue and shortness of breath as well as intermittent fever and headache. She did report 2 recent tick bites in December 2018. In the emergency room, the patient was noted to meet sepsis criteria with fever and tachycardia with the source thought to be urinary tract infection due to an abnormal urinalysis. The patient was also noted to be anemic with an H and H of 9.7 and 28. I will note that the patient did have lab work on 02/19/19, the day before presenting to the emergency room, and at that time H and H were 11.3 and 33. Because of the concern for anemia and sepsis, the patient was admitted by the hospitalist service. She was placed on ceftriaxone for treatment of urinary tract infection, though it was not entirely convincing that this was a urinary tract infection. Ultimately, her urine culture grew 75,000 to 100,000 colonies of pansensitive E. coli. So, again because of the lack of urinary symptoms, this was not particularly convincing, though the patient did appear to be improving on ceftriaxone. Throughout this hospital stay, the patient's anemia remained stable. She was noted to have a negative guaiac and it was not clear why there was a nearly 2-point drop in her hemoglobin within a day's time. The labs in the emergency room were drawn prior to a significant amount of fluid being administered, so I do not think that that represented dilution. Regardless, H and H remained stable and as of 02/22/19 were 9.7 and 31. She was noted to have clumped platelets throughout this hospital stay and because of this and the sudden onset anemia, Hematology was consulted. The patient was seen by Dr. Richard on 02/21/19. At that point, he himself reviewed the peripheral smear and did note clumped platelets, some platelets almost as large as the size of a red blood cell. He felt as though, regardless of this clumping, platelet count was likely still within normal range and there was not a significant concern for thrombocytopenia. Regarding the anemia, he felt as though this was anemia of chronic disease, acutely worsened by sepsis, and potentially worsening renal disease. It is noted that the patient has been taking iron supplementation for quite some time, though is still noted to have a serum iron of less than 17. Transferrin was also low at 197, though ferritin was high at 510. Vitamin B was also high, greater than 1450. Hematology did not have any acute concerns regarding the patient's anemia or platelets. On admission, creatinine was noted to be 3.3 and it appears as though her recent baseline has been around 2.1. As of today, the day of discharge, the patient's creatinine is back to 2.01. This was slow to improve even with IV fluids and so there was concern for acute tubular necrosis. On admission, a full tick panel was sent out and ultimately this finally resulted over night last night. The patient was noted to have a positive anaplasma DNA PCR. At that point, she was placed on doxy and had her first p.o. dose around 1 a.m. this morning. The diagnosis of anaplasmosis would certainly correlate with many of her symptoms including fever , headache, anemia, and platelet abnormalities. The patient has continued to report mild shortness of breath. At this point, I suspect that is secondary to anemia. She did have a significant drop in hemoglobin in a short period of time. There was no evidence of pneumonia or pulmonary embolism. As of today, the patient reports feeling well and is anxious to return home. I did speak with Dr. Devlin from Infectious Disease this morning regarding the diagnosis of anaplasmosis. He recommended a full 14 days of doxycycline with a being IV here in the hospital prior to discharge. He also felt it was appropriate for her to follow up with him as an outpatient to ensure resolution. Again, the patient did have evidence of a weak UTI, though ultimately this may have just represented bacteriuria. It potentially could have been an opportunistic infection from the anaplasmosis, hence causing her acute symptoms. Regardless, the E. coli was pansensitive and so was covered by ceftriaxone and will be covered by doxy as well, so she will receive an appropriate course of antibiotics for this. On exam, the patient has no focal neurological deficits. Her heart has a regular rate and rhythm without murmurs, rubs, or gallops. Lungs are clear to auscultation without any rhonchi, wheezes, or rubs. Physical assessment is otherwise benign. Ms. Maurice is stable for discharge today. Vital signs are as follows: Temp 98.1, heart rate 104, respiratory rate 18, oxygen saturation 99% on room air, blood pressure 130/81. DISCHARGE MEDICATIONS: New medication: 1. Doxycycline 100 mg p.o. b.i.d. x14 days. Continued medications: 1. Albuterol MDI 1 to 2 puffs q.6 hours p.r.n. shortness of breath. 2. Ascorbic acid 500 mg p.o. daily. 3. Aspirin 81 mg p.o. daily. 4. Atorvastatin 10 mg p.o. daily. 5. Calcitriol 0.25 mcg p.o. at bedtime. 6. Calcium, magnesium, zinc 1 tab p.o. daily. 7. Cholecalciferol 1000 units p.o. daily. 8. Vitamin B12 1000 mcg p.o. daily. 9. Ferrous gluconate 325 mg p.o. daily. 10. Lisinopril 10 mg p.o. daily. 11. Sitagliptin 50 mg p.o. daily. 12. Vitamin E 400 mg p.o. daily. DISCHARGE PLAN: Ms. Maurice will be discharged home. Activity will be as tolerated. Diet will be diabetic. She can resume her pre-hospitalization diet. Medications as noted above. The patient has been prescribed a full 14 days of doxycycline per Infectious Diseases' recommendations. She did receive a dose of IV doxycycline here in the hospital prior to discharge per ID recommendation. Her other medications remain unchanged. She will need to follow up with her PCP in 4 to 7 days. I have ordered a CBC for 1 week from now to recheck on her anemia and platelets. These results will be sent to Dr. Martin and Dr. Devlin. As noted above, there was an incidentally found ovarian cyst that will need additional follow up with a pelvic ultrasound, and I will defer this to the PCP. The patient should follow up with Dr. Devlin in approximately 2 weeks when she is nearing the end of her antibiotic course. She does have an appointment to see Dr. Alberts with Nephrology next week and I have advised her to keep that appointment. At this point, her kidney function has returned back to baseline, though she should resume regular followup because of her CKD. She can follow up with Dr. Birmingham, her brick yard hand, as needed though I do not have any acute concerns related to her diabetes. The patient has been advised to return to the emergency room or nearest hospital for any worsening of symptoms, shortness of breath, lightheadedness, dizziness, chest discomfort, high fevers, chills, night sweats , loss of consciousness, or any other worrisome signs or symptoms. DISCHARGE CONDITION: Stable. DISCHARGE DISPOSITION: Home. This is a summarized report of a complex medical history and hospital stay. For further details, please see the entire medical record. TIME SPENT: Approximately 60 minutes was spent on this discharge. ARLIN GUILLAUME, QUALITY SYSTEMS MANAGER [id number]/[facility] #: [id number] [facility]vie
== END 2019-02-24 13:00 | disposition home or self-care (01) | DRG 872 ==
LOC: ED 14:05 → MEDTELE 23:43
PROVIDERS: ADMIT Internal Medicine; ATTEND Internal Medicine
DX: A41.9 Sepsis, unspecified organism (principal); N17.9 Acute kidney failure, unspecified; N18.4 Chronic kidney disease, stage 4 (severe); N39.0 Urinary tract infection, site not specified; A77.49 Other ehrlichiosis; D69.1 Qualitative platelet defects; E11.22 Type 2 diabetes mellitus with diabetic chronic kidney disease; E11.42 Type 2 diabetes mellitus with diabetic polyneuropathy; D63.1 Anemia in chronic kidney disease; I12.9 Hypertensive chronic kidney disease with stage 1 through stage 4 chronic kidney disease, or unspecified chronic kidney disease; W57.XXXA Bitten or stung by nonvenomous insect and other nonvenomous arthropods, initial encounter; B96.20 Unspecified Escherichia coli [E. coli] as the cause of diseases classified elsewhere; E53.8 Deficiency of other specified B group vitamins; N83.209 Unspecified ovarian cyst, unspecified side; E78.5 Hyperlipidemia, unspecified; Z87.891 Personal history of nicotine dependence; Z86.19 Personal history of other infectious and parasitic diseases; Z79.84 Long term (current) use of oral hypoglycemic drugs; Z79.82 Long term (current) use of aspirin; Z79.899 Other long term (current) drug therapy; Z79.51 Long term (current) use of inhaled steroids
CPT/HCPCS: 36415; 71046; 76770; 78582; 80048; 80053; 81003; 81015; 82270; 82550; 82553; 82570; 82607; 82728; 83010; 83036; 83540; 83550; 83605; 83615; 83880; 84155; 84156; 84165; 84166; 84300; 84484; 85025; 85027; 85045; 85049; 85060; 85379; 85610; 85730; 86140; 86157; 86850; 86880; 86900; 86901; 87040; 87077; 87086; 87186; 87476; 87798; 93005; 99284; A9270-GY; A9540; A9558; J0696